=== PATIENT | female | born 1960 | race Caucasian/White ===

== ENCOUNTER 2018-09-08 19:25 | Emergency (ER) | payer MEDICAID, OTHER ==
[~2018-09-08 19:25] MED LIST: BACDS PO; HYDR1TAB PO; IBUP-1986 PO; NO HOME MEDS
== END 2018-09-08 20:34 | disposition left against medical advice (07) ==
LOC: ER 19:25
DX: R11.0 Nausea (principal); Z53.21 Procedure and treatment not carried out due to patient leaving prior to being seen by health care provider

== ENCOUNTER 2021-05-28 08:02 | Day surgery (SDC) | payer MEDICAID ==
[2021-05-27 15:21] LABS: BASOPHILS # (AUTO) 0.1 X10'3 (0-0.2); BASOPHILS % (AUTO) 1.3 % (0-1); EOSINOPHILS # (AUTO) 0.2 X10'3 (0-0.9); EOSINOPHILS % (AUTO) 3.6 % (0-6); LYMPHOCYTES # (AUTO) 1.8 X10'3 (1.1-4.8); LYMPHOCYTES % (AUTO) 31.2 % (21-51); MEAN CORPUSCULAR HEMOGLOBIN 33.6 PG (27.0-31.0); MEAN CORPUSCULAR HGB CONC 34.9 g/dL (33.0-36.5); MEAN CORPUSCULAR VOLUME 96.4 FL (78-98); MONOCYTES # (AUTO) 0.4 X10'3 (0-0.9); MONOCYTES % (AUTO) 7.3 % (2-12); NEUTROPHILS # (AUTO) 3.2 X10'3 (1.8-7.7); NEUTROPHILS % (AUTO) 56.6 % (42-75); PRE OP HEMATOCRIT 38.7 % (35.0-45.0); PRE OP HEMOGLOBIN 13.5 g/dL (12.0-16.0); PRE OP PLATELET COUNT 292 X10'3 (140-440); RED BLOOD COUNT 4.02 X10'6 (4.20-5.60); RED CELL DISTRIBUTION WIDTH 13.3 % (11.5-14.5)
[2021-05-27 15:35] LABS: ALBUMIN 4.3 G/DL (3.4-5.0); ALBUMIN/GLOBULIN RATIO 1.2 (1.1-1.5); ALKALINE PHOSPHATASE 65 IU/L (46-116); BLOOD UREA NITROGEN 17 MG/DL (7-18); BUN/CREATININE RATIO 18.9 (6.6-38.0); CALCIUM 8.9 MG/DL (8.5-10.1); CHLORIDE 104 MMOL/L (99-107); PRE OP ALT 38 U/L (30-65); PRE OP ANION GAP 10 (8-16); PRE OP AST 28 U/L (10-37); PRE OP BILIRUB, TOTAL 0.8 MG/DL (0.0-1.0); PRE OP GLUCOSE 88 MG/DL (70-104); PRE OP POTASSIUM 3.7 MMOL/L (3.4-5.1); PRE OP SODIUM 140 MMOL/L (135-145); TOTAL CARBON DIOXIDE 26.5 MMOL/L (24-32); TOTAL PROTEIN 7.9 G/DL (6.4-8.2); eGFR 64 ML/MIN
[2021-05-28] VITALS (16 sets, daily range): BP systolic 136–155; BP diastolic 76–103
[~2021-05-28] VITALS: Ht 160 cm; Wt 79.8 kg
[~2021-05-28 08:02] MED LIST changes: -BACDS PO; -HYDR1TAB PO; -IBUP-1986 PO; +INDOCYANINE GREEN 25 MG/10 ML VIAL IV ONE; +cefazolin/dext.iso 2gm/50ml 50 ML IV ONE; +famotidine 20mg tablet PO ONE; +meperidine/PF 25mg/ml syringe IV PRN; +morphine 2 MG/ML inj. syringe IV PRN; +morphine 4 MG/ML inj SYRINge IV PRN; +ondansetron/PF 4mg/2ml inj IV PRN; +proCHLORperazine 10 MG/2 ml inj IV PRN; +ringers solution, lacted 1,000 ML IV SCH; +sevoflurane 250ml liquid IH ONE
[2021-05-28] MEDS ORDERED: midazolam 1 mg/ML 2ml injection ONE (11:09)
[2021-05-28] MEDS ORDERED: fentaNYL/PF 50MCG/1 ML 2ML syringe ONE (11:09)
[2021-05-28] MEDS ORDERED: meperidine/PF 25mg/ml syringe ONE (11:10)
[2021-05-28] MEDS ORDERED: propofol inj 20 ML IV ONE (11:23)
[2021-05-28] MEDS ORDERED: LIDOcaine 1% 30ml preserv. free vial ONE (11:23)
[2021-05-28] MEDS ORDERED: rocuronium 10mg/ml inj IV ONE (11:23)
[2021-05-28] MEDS ORDERED: LIDOcaine 2% (20mg/ml) 5ml vial ONE (11:23)
[2021-05-28] MEDS ORDERED: BUPIVAcaine/PF 2.5 mg/ml (0.25%) 30ml vial ONE (11:23)
[2021-05-28] MEDS ORDERED: ondansetron/PF 4mg/2ml inj ONE (11:25)
--- NOTE | 2021-05-28 12:17 | NUR ---
Received from OR via , accompanied by Anesthesiologist DR LONG and report given by Anesthesiolgist. PT PRESENT WITH 20G RIGHT FOREARM, ABD DRESSING CDI, VSS. Addendum: 05/28/21 at 1306 by Franny Ziegler RN, RN Amended: Links added.
[2021-05-28] MEDS ORDERED: oxyCODONE/APAP 5-325mg tablet PO PRN ×2 (12:20→12:25)
--- NOTE | 2021-05-28 14:17 | NUR ---
PT HAS MED CRITERIA FOR DC. IV DC'D WITH CATHETER INTACT. DC INSTRUCTIONS REVIEWED WITH PT, PT VERBALIZED UNDERSTANDING WITH NO FURTHR QUESTIONS AT THIS TIME. PT TAKEN OUT OF HOSPITAL IN WHEELCHAIR TO PRIVATE VEHICLE WHERE FRIEND JIE WAS WAITING TO TAKE PT HOME. Addendum: 05/28/21 at 1437 by Franny Ziegler RN, RN Amended: Links added.
== END 2021-05-28 14:17 | disposition home or self-care (01) ==
LOC: PAS 08:02
PROVIDERS: ATTEND Surgery
DX: K80.10 Calculus of gallbladder with chronic cholecystitis without obstruction (principal); E03.9 Hypothyroidism, unspecified; F31.9 Bipolar disorder, unspecified; F90.9 Attention-deficit hyperactivity disorder, unspecified type; F25.9 Schizoaffective disorder, unspecified; E78.5 Hyperlipidemia, unspecified; F10.20 Alcohol dependence, uncomplicated; E66.9 Obesity, unspecified; Z68.31 Body mass index [BMI] 31.0-31.9, adult; Z85.41 Personal history of malignant neoplasm of cervix uteri; Z90.710 Acquired absence of both cervix and uterus; Z91.013 Allergy to seafood; Z79.899 Other long term (current) drug therapy; Z80.6 Family history of leukemia; Z83.3 Family history of diabetes mellitus
CPT/HCPCS: 36415; 47563; 80053; 82948; 85025; 87635; 93005; C9803; J0690; J2175; J2250; J2405; J2704; J3010; J3490; J7030; J7120; S2900; Z7506; Z7508; Z7512; A4215; A4618; A7000

== ENCOUNTER 2023-06-13 03:53 | Emergency (ER) | payer BC, MEDICAID ==
[~2023-06-13] VITALS: Ht 160 cm; Wt 81.8 kg
[~2023-06-13 03:53] MED LIST changes: -INDOCYANINE GREEN 25 MG/10 ML VIAL IV ONE; -cefazolin/dext.iso 2gm/50ml 50 ML IV ONE; -famotidine 20mg tablet PO ONE; -meperidine/PF 25mg/ml syringe IV PRN; -morphine 2 MG/ML inj. syringe IV PRN; -morphine 4 MG/ML inj SYRINge IV PRN; -ondansetron/PF 4mg/2ml inj IV PRN; -proCHLORperazine 10 MG/2 ml inj IV PRN; -ringers solution, lacted 1,000 ML IV SCH; -sevoflurane 250ml liquid IH ONE
[2023-06-13 05:42] VITALS: TEMP 99.1
[2023-06-13] MEDS: ketorolac trometh inj. 60 MG/2 ML VIAL IM STA (06:49)
[2023-06-13] MEDS: ondansetron 4mg rapidly disintigrating tab PO ONE (06:49)
[2023-06-13] MEDS: HYDROmorphone 1 mg/ml syringe IM ONE (06:50)
[2023-06-13] MEDS: HYDROmorphone inj. 0.5 MG/0.5 ML DISP.SYRIN IV STA (09:18)
[2023-06-13] MEDS: HYDROmorphone inj. 0.5 MG/0.5 ML DISP.SYRIN IV ONE (09:19)
[2023-06-13 09:23] LABS: ALBUMIN 4.3 G/DL (3.4-5.0); ANION GAP 12 (8-16); BLOOD UREA NITROGEN 13 MG/DL (7-18); BUN/CREATININE RATIO 10.5 (10.0-20.0); CALCIUM 9.2 MG/DL (8.5-10.1); CHLORIDE 104 MMOL/L (99-107); CREATININE 1.24 MG/DL (0.40-0.90); GLUCOSE 124 MG/DL (70-104); POTASSIUM 3.6 MMOL/L (3.5-5.1); SODIUM 144 MMOL/L (135-145); TOTAL CARBON DIOXIDE 27.9 MMOL/L (24-32); eCRCL 40 ML/MIN; eGFR 44 ML/MIN
[2023-06-13 09:28] LABS: BASOPHILS # (AUTO) 0.1 X10'3 (0-0.2); BASOPHILS % (AUTO) 0.8 % (0-1); EOSINOPHILS % (AUTO) 0.2 % (0-6); HEMATOCRIT 38.2 % (35.0-45.0); HEMOGLOBIN 13.5 g/dl (12.0-16.0); LYMPHOCYTES # (AUTO) 1.1 X10'3 (1.1-4.8); LYMPHOCYTES % (AUTO) 11.9 % (21-51); MEAN CORPUSCULAR HEMOGLOBIN 34.9 PG (27.0-31.0); MEAN CORPUSCULAR HGB CONC 35.2 g/dL (33.0-36.5); MEAN CORPUSCULAR VOLUME 99.3 FL (78-98); MEAN PLATELET VOLUME 8.7 FL (7.4-10.4); MONOCYTES # (AUTO) 0.7 X10'3 (0-0.9); MONOCYTES % (AUTO) 7.7 % (2-12); NEUTROPHILS # (AUTO) 7.6 X10'3 (1.8-7.7); NEUTROPHILS % (AUTO) 79.4 % (42-75); PLATELET COUNT 243 X10'3 (140-440); RED BLOOD COUNT 3.85 X10'6 (4.20-5.60); WHITE BLOOD COUNT 9.6 X10'3 (4.5-11.0)
[2023-06-13] MEDS ORDERED: DOXY-356 PO (10:44)
[2023-06-13] MEDS ORDERED: IBUP-1984 PO (10:44)
[2023-06-13] MEDS ORDERED: OXYC-658 PO (10:44)
[2023-06-13 11:17] VITALS: BP 138/93; PULSE 85; RESP 18; O2SAT 98
== END 2023-06-13 11:18 | disposition home or self-care (01) ==
LOC: ER 03:53
DX: L03.115 Cellulitis of right lower limb (principal); Z91.013 Allergy to seafood; Z79.1 Long term (current) use of non-steroidal anti-inflammatories (NSAID); Z79.899 Other long term (current) drug therapy
CPT/HCPCS: 36415; 73630; 80048; 83605; 85025; 93971; 96372; 96374; 99285; J1170; J1885